=== PATIENT | male | born 1965 | race Caucasian/White ===

== ENCOUNTER → 2016-07-21 | Outpatient (CLI) | payer OTHER ==
--- NOTE | 2016-07-21 13:24 | DX ---
PA and Lateral Chest July 21, 2016 Indication: Chest pain and fever. Comparison: Two-view chest dated June 14, 2009 Findings: Minimal diffuse peribronchial thickening. No airspace consolidation, edema or effusion. Hea rt size is normal. No pulmonary nodule or mass. Impression: No pneumonia. Mild airways disease.
== END ==
LOC: BMCIMAGING 13:01
PROVIDERS: ATTEND Emergency Medicine
DX: R07.9 Chest pain, unspecified (principal); R50.9 Fever, unspecified

== ENCOUNTER → 2016-09-04 | Outpatient (CLI) | payer OTHER | LOC: BMCIMAGING 12:18 | PROVIDERS: ATTEND Internal Medicine | DX: R05 Cough (principal) ==

== ENCOUNTER → 2017-03-06 | Outpatient (CLI) | payer OTHER | LOC: BMCIMAGING 13:11 | PROVIDERS: ATTEND Podiatrist Foot & Ankle Surgery | DX: M79.671 Pain in right foot (principal) ==